=== PATIENT | male | born 1975 | race Caucasian/White ===

== ENCOUNTER 2018-02-05 19:52 | Emergency (ER) | payer SELFPAY ==
[~2018-02-05] VITALS: Ht 175.3 cm; Wt 70.8 kg
[2018-02-05 19:55] VITALS: BP 134/76; TEMP 97.4
[2018-02-05] MEDS ORDERED: CEPHALEXIN500 M1 PO (20:56)
[2018-02-05 21:18] VITALS: PULSE 74
== END 2018-02-05 21:18 | disposition home or self-care (01) ==
LOC: COL.ER 19:52
DX: S61.310A Laceration without foreign body of right index finger with damage to nail, initial encounter (principal); W23.0XXA Caught, crushed, jammed, or pinched between moving objects, initial encounter; F17.210 Nicotine dependence, cigarettes, uncomplicated